=== PATIENT | male | born 1980 | race African-American/Black ===

== ENCOUNTER 2023-08-20 02:13 | Emergency (ER) | payer OTHER ==
[~2023-08-20] VITALS: Ht 180.3 cm; Wt 90.7 kg
[2023-08-20 02:35] VITALS: BP 135/88; PULSE 78; RESP 16; TEMP 97.8; O2SAT 98
[2023-08-20 03:39] VITALS: BP 135/88; PULSE 78; RESP 16; TEMP 97.8; O2SAT 98
== END 2023-08-20 03:40 | disposition home or self-care (01) ==
LOC: MED 02:13
DX: S16.1XXA Strain of muscle, fascia and tendon at neck level, initial encounter (principal); Z79.899 Other long term (current) drug therapy; V49.88XA Car occupant (driver) (passenger) injured in other specified transport accidents, initial encounter; Y93.89 Activity, other specified; Y92.89 Other specified places as the place of occurrence of the external cause; Y99.8 Other external cause status
CPT/HCPCS: 72050; 99283